=== PATIENT | female | born 1965 | race Caucasian/White ===

== ENCOUNTER → 2021-01-05 | Outpatient (CLI) | payer OTHER ==
[~2021-01-05] MED LIST: ATORVASTATIN CA40 MG PO; BUPROPION XL150 MG PO; CLARITIN 10MG T10 MG PO; CLINDAMYCIN HC300 MG PO; CLOPIDOGREL75 MG PO; D3-501250 MCG PO; DIABETA 2.5 MG2.5 MG PO; ECOTRIN81 MG PO; ELAVIL 25 MG TA25 MG PO; FLEXERIL 10 MG10 MG PO; GABAPENTIN800 MG PO; GLIMEPIRIDE1 MG PO; GLUCOPHAGE850 MG PO; HUMULIN 70100 UNIT/2 SC; HYDROCODON-ACE1 EAC4 PO; IBUPROFEN800 MG PO; IMDUR ER TAB 6060 MG PO; ISOSORBIDE MONO30 MG PO; LANTUS SOL100 UNIT/1 SQ; LEVOFLOXACIN500 MG PO; LISINOPRIL-HCT1 EAC2 PO; LISINOPRIL5 MG PO; LOPRESSOR 25 MG25 MG PO; LOPRESSOR50 MG PO; METFORMIN HCL1000 MG PO; NEURONTIN400 MG PO; NITROSTAT0.4 MG SL; PANTOPRAZOLE SO40 MG PO; PLAVIX 75 MG TA75 MG PO; PROTONIX 40 MG40 M1 PO; RANEXA500 MG PO; TIZANIDINE HCL4 MG PO; TORADOL 10 MG T10 MG PO; VITAMIN D3125 MCG PO; ZANAFLEX4 M1 PO
== END ==
LOC: HEART 5 07:26
DX: R00.2 Palpitations (principal)

== ENCOUNTER → 2021-02-21 | Outpatient (CLI) | payer OTHER ==
[2021-02-21 11:54] LABS: HEMOGLOBIN 13.7 gm/dl (12.3-15.3); RED BLOOD COUNT 4.65 M/UL (4.00-5.10); WHITE BLOOD COUNT 11.3 K/UL (4.5-11.0)
[2021-02-21 12:15] LABS: BUN/CREATININE RATIO 19 (0-10)
== END ==
LOC: LAB 10:57
PROVIDERS: Internal Medicine Cardiovascular Disease
DX: R55 Syncope and collapse (principal); I47.2 Ventricular tachycardia; R00.1 Bradycardia, unspecified
CPT/HCPCS: 36415; 71046; 80048; 84439; 84443; 84481; 85025

== ENCOUNTER 2021-02-23 12:01 | Outpatient (CLI) | payer OTHER ==
[~2021-02-23] VITALS: Ht 165.1 cm; Wt 75.8 kg
[~2021-02-23 12:01] MED LIST changes: -BUPROPION XL150 MG PO; -CLARITIN 10MG T10 MG PO; -CLINDAMYCIN HC300 MG PO; -CLOPIDOGREL75 MG PO; -D3-501250 MCG PO; -GABAPENTIN800 MG PO; -HUMULIN 70100 UNIT/2 SC; -HYDROCODON-ACE1 EAC4 PO; -ISOSORBIDE MONO30 MG PO; -LANTUS SOL100 UNIT/1 SQ; -LEVOFLOXACIN500 MG PO; -LISINOPRIL5 MG PO; -LOPRESSOR 25 MG25 MG PO; -METFORMIN HCL1000 MG PO; -PLAVIX 75 MG TA75 MG PO; -PROTONIX 40 MG40 M1 PO; -TIZANIDINE HCL4 MG PO
[2021-02-23] MEDS ORDERED: BUPROPION XL150 MG PO (13:09)
[2021-02-23] MEDS ORDERED: CLOPIDOGREL75 MG PO (13:09)
[2021-02-23] MEDS ORDERED: GABAPENTIN800 MG PO (13:10)
[2021-02-23] MEDS ORDERED: LANTUS SOL100 UNIT/1 SQ (13:11)
[2021-02-23] MEDS ORDERED: HUMULIN 70100 UNIT/2 SC (13:11)
[2021-02-23] MEDS ORDERED: LISINOPRIL5 MG PO (13:11)
[2021-02-23] MEDS ORDERED: METFORMIN HCL1000 MG PO (13:12)
[2021-02-23] MEDS ORDERED: PROTONIX 40 MG40 M1 PO (13:13)
[2021-02-23] MEDS ORDERED: TIZANIDINE HCL4 MG PO (13:13)
[2021-02-23] MEDS ORDERED: D3-501250 MCG PO (13:14)
[2021-02-23] MEDS ORDERED: CLARITIN 10MG T10 MG PO (13:16)
[2021-02-23] MEDS ORDERED: ISOSORBIDE MONO30 MG PO (13:16)
[2021-02-23] MEDS ORDERED: HYDROCODON-ACE1 EAC4 PO (16:14)
[2021-02-23] MEDS ORDERED: LEVOFLOXACIN500 MG PO (16:14)
[2021-02-23] MEDS ORDERED: CLINDAMYCIN HC300 MG PO (16:14)
[2021-02-23] MEDS ORDERED: LOPRESSOR 25 MG25 MG PO (16:23)
[2021-02-23] MEDS ORDERED: PLAVIX 75 MG TA75 MG PO (16:52)
== END 2021-02-24 12:15 | disposition home or self-care (01) ==
LOC: CATH 12:01 → PROG CARE 17:02 → CATH 02-24 12:15
DX: I44.1 Atrioventricular block, second degree (principal); I47.2 Ventricular tachycardia; R42 Dizziness and giddiness; R55 Syncope and collapse; R00.1 Bradycardia, unspecified; I25.118 Atherosclerotic heart disease of native coronary artery with other forms of angina pectoris; I25.2 Old myocardial infarction; I10 Essential (primary) hypertension; E11.65 Type 2 diabetes mellitus with hyperglycemia; E11.42 Type 2 diabetes mellitus with diabetic polyneuropathy; K21.9 Gastro-esophageal reflux disease without esophagitis; F32.9 Major depressive disorder, single episode, unspecified; E78.5 Hyperlipidemia, unspecified; Z95.5 Presence of coronary angioplasty implant and graft; Z86.73 Personal history of transient ischemic attack (TIA), and cerebral infarction without residual deficits; Z86.16 Personal history of COVID-19; Z88.0 Allergy status to penicillin; Z79.82 Long term (current) use of aspirin; Z79.02 Long term (current) use of antithrombotics/antiplatelets; Z79.4 Long term (current) use of insulin; Z79.899 Other long term (current) drug therapy
CPT/HCPCS: 33249; 71045; 82962; 93620; 93641; 99152; 99153; C1721; C1730; C1766; C1777; C1898; J1644; J2250; J2270; J3010; J3370; J7030; J7040; J7050; J7070

== ENCOUNTER 2021-02-28 22:44 | Emergency (ER) | payer OTHER ==
[~2021-02-28 22:44] MED LIST changes: +BUPROPION XL150 MG PO; +CLARITIN 10MG T10 MG PO; +CLINDAMYCIN HC300 MG PO; +CLOPIDOGREL75 MG PO; +D3-501250 MCG PO; +GABAPENTIN800 MG PO; +HUMULIN 70100 UNIT/2 SC; +HYDROCODON-ACE1 EAC4 PO; +ISOSORBIDE MONO30 MG PO; +LANTUS SOL100 UNIT/1 SQ; +LEVOFLOXACIN500 MG PO; +LISINOPRIL5 MG PO; +LOPRESSOR 25 MG25 MG PO; +METFORMIN HCL1000 MG PO; +PLAVIX 75 MG TA75 MG PO; +PROTONIX 40 MG40 M1 PO; +TIZANIDINE HCL4 MG PO
[2021-03-01 00:46] LABS: HEMOGLOBIN 12.9 gm/dl (12.3-15.3); RED BLOOD COUNT 4.41 M/UL (4.00-5.10); WHITE BLOOD COUNT 10.9 K/UL (4.5-11.0)
[2021-03-01 01:06] LABS: BUN/CREATININE RATIO 23 (0-10)
== END 2021-03-01 01:41 | disposition home or self-care (01) ==
LOC: ER1 22:44
PROVIDERS: Family Medicine
DX: T17.208A Unspecified foreign body in pharynx causing other injury, initial encounter (principal); Z86.73 Personal history of transient ischemic attack (TIA), and cerebral infarction without residual deficits; Z95.0 Presence of cardiac pacemaker; Z95.1 Presence of aortocoronary bypass graft; Z90.49 Acquired absence of other specified parts of digestive tract
CPT/HCPCS: 71045; 80053; 82550; 82553; 83874; 84484; 85025; 93005; 99283

== ENCOUNTER 2021-06-30 13:28 | Emergency (ER) | payer OTHER | END 2021-06-30 16:58 | disposition home or self-care (01) | LOC: ER1 13:28 | DX: M54.42 Lumbago with sciatica, left side (principal); M25.552 Pain in left hip; E11.9 Type 2 diabetes mellitus without complications; I10 Essential (primary) hypertension; Z95.1 Presence of aortocoronary bypass graft; Z88.0 Allergy status to penicillin; Z86.73 Personal history of transient ischemic attack (TIA), and cerebral infarction without residual deficits | CPT/HCPCS: 73502; 96372; 99283; J1100; J1885 ==

== ENCOUNTER → 2021-09-05 | Outpatient (CLI) | payer OTHER | LOC: KOH-I 08-29 08:30 | DX: R51.9 Headache, unspecified (principal); R29.6 Repeated falls; R53.1 Weakness | CPT/HCPCS: 70450 ==

== ENCOUNTER → 2021-09-13 | Outpatient (CLI) | payer OTHER | LOC: HEART 5 08:45 | DX: I20.9 Angina pectoris, unspecified (principal) | CPT/HCPCS: 78452; A9502; J2785 ==

== ENCOUNTER 2021-11-03 19:54 | Observation (INO) | payer OTHER ==
[~2021-11-03] VITALS: Ht 165.1 cm; Wt 72.1 kg
[~2021-11-03 19:54] MED LIST changes: -ELAVIL 25 MG TA25 MG PO; +ELAVIL 50 MG TA50 MG PO
[2021-11-03 20:27] LABS: HEMOGLOBIN 14.3 gm/dl (12.3-15.3); RED BLOOD COUNT 5.07 M/UL (4.00-5.10); WHITE BLOOD COUNT 10.9 K/UL (4.5-11.0)
[2021-11-03 20:51] LABS: BUN/CREATININE RATIO 19 (0-10)
[2021-11-04] MEDS ORDERED: PROMETHAZINE-D473 M1 PO (00:10)
[2021-11-04] MEDS ORDERED: KLONOPIN TAB 00.5 MG PO (00:11)
[2021-11-04] MEDS ORDERED: CELEXA 20MG TAB20 MG PO (00:11)
[2021-11-04 06:16] LABS: HEMOGLOBIN 14.1 gm/dl (12.3-15.3); RED BLOOD COUNT 5.04 M/UL (4.00-5.10); WHITE BLOOD COUNT 11.7 K/UL (4.5-11.0)
[2021-11-04 06:36] LABS: BUN/CREATININE RATIO 22 (0-10)
--- NOTE | 2021-11-04 06:36 | NUR ---
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 DAYSHIFT RN MADE AWARE.
[2021-11-04 20:31] LABS: HEMOGLOBIN 14.3 gm/dl (12.3-15.3); RED BLOOD COUNT 5.22 M/UL (4.00-5.10); WHITE BLOOD COUNT 10.5 K/UL (4.5-11.0)
[2021-11-04 20:50] LABS: BUN/CREATININE RATIO 18 (0-10)
[2021-11-05 03:08] LABS: HEMOGLOBIN 14.2 gm/dl (12.3-15.3); RED BLOOD COUNT 5.04 M/UL (4.00-5.10); WHITE BLOOD COUNT 13.1 K/UL (4.5-11.0)
[2021-11-05 03:24] LABS: BUN/CREATININE RATIO 15 (0-10)
[2021-11-05] MEDS ORDERED: BRILINTA 90 MG90 MG PO (09:06)
[2021-11-05] MEDS ORDERED: NITROSTAT0.4 MG SL (10:16)
== END 2021-11-05 09:05 | disposition home or self-care (01) ==
LOC: ER1 19:54 → M/S 21:30 → CDU 21:30 → M/S 21:30 → PROG CARE 11-04 13:46
PROVIDERS: Internal Medicine Interventional Cardiology; Nurse Practitioner; ADMIT Internal Medicine
DX: I25.110 Atherosclerotic heart disease of native coronary artery with unstable angina pectoris (principal); I10 Essential (primary) hypertension; I48.0 Paroxysmal atrial fibrillation; E11.9 Type 2 diabetes mellitus without complications; I69.351 Hemiplegia and hemiparesis following cerebral infarction affecting right dominant side; Z95.1 Presence of aortocoronary bypass graft; E78.5 Hyperlipidemia, unspecified; G89.29 Other chronic pain; M54.50 Low back pain, unspecified; Z90.49 Acquired absence of other specified parts of digestive tract; Z98.51 Tubal ligation status; Z88.0 Allergy status to penicillin; Z82.49 Family history of ischemic heart disease and other diseases of the circulatory system; Z79.82 Long term (current) use of aspirin; Z79.4 Long term (current) use of insulin; Z79.01 Long term (current) use of anticoagulants; Z79.899 Other long term (current) drug therapy
CPT/HCPCS: ECHO; 36415; 71045; 80048; 80053; 82550; 82553; 82962; 83735; 83874; 84484; 85025; 85027; 85347; 85610; 85730; 93005; 93306; 93571; 96374; 96375; 96376; 97161; 99152; 99153; 99285; C1769; C1874; C1887; C9600; G0378; J0153; J1170; J1644; J2250; J3010; J3246; J7040; Q9967

== ENCOUNTER → 2022-01-13 | Outpatient (CLI) | payer OTHER ==
[~2022-01-13] MED LIST changes: +BRILINTA 90 MG90 MG PO; +CELEXA 20MG TAB20 MG PO; +KLONOPIN TAB 00.5 MG PO; +PROMETHAZINE-D473 M1 PO
== END ==
LOC: RAD 11:09
DX: M25.561 Pain in right knee (principal); M25.562 Pain in left knee
CPT/HCPCS: 73562

== ENCOUNTER → 2022-03-16 | Outpatient (CLI) | payer OTHER | LOC: RAD 12:43 | DX: M25.551 Pain in right hip (principal); M47.816 Spondylosis without myelopathy or radiculopathy, lumbar region; N20.0 Calculus of kidney | CPT/HCPCS: 72100; 73502 ==

== ENCOUNTER 2022-05-11 15:20 | Emergency (ER) | payer OTHER ==
[2022-05-11 15:36] LABS: HEMOGLOBIN 13.8 gm/dl (12.3-15.3); RED BLOOD COUNT 4.78 M/UL (4.00-5.10); WHITE BLOOD COUNT 15.5 K/UL (4.5-11.0)
[2022-05-11] MEDS ORDERED: ONDANSETRON ODT4 MG SL (21:08)
== END 2022-05-11 21:59 | disposition home or self-care (01) ==
LOC: ER1 15:20
PROVIDERS: Physician Assistant
DX: R55 Syncope and collapse (principal); S09.90XA Unspecified injury of head, initial encounter; S16.1XXA Strain of muscle, fascia and tendon at neck level, initial encounter; J06.9 Acute upper respiratory infection, unspecified; J04.0 Acute laryngitis; I95.9 Hypotension, unspecified; E11.9 Type 2 diabetes mellitus without complications; I11.9 Hypertensive heart disease without heart failure; I25.10 Atherosclerotic heart disease of native coronary artery without angina pectoris; Z20.822 Contact with and (suspected) exposure to COVID-19; Z88.0 Allergy status to penicillin; Z79.82 Long term (current) use of aspirin; Z79.02 Long term (current) use of antithrombotics/antiplatelets; Z87.442 Personal history of urinary calculi; Z95.5 Presence of coronary angioplasty implant and graft
CPT/HCPCS: 0240U; 51701; 70450; 71045; 72125; 80053; 81001; 82550; 82553; 83605; 84484; 84703; 85025; 87040; 87086; 93005; 96361; 96374; 99285; J2405

== ENCOUNTER → 2022-06-30 | Outpatient (CLI) | payer OTHER ==
[~2022-06-30] MED LIST changes: +ONDANSETRON ODT4 MG SL
== END ==
LOC: CT 12:16
DX: R31.29 Other microscopic hematuria (principal); M54.50 Low back pain, unspecified; R10.9 Unspecified abdominal pain; R39.11 Hesitancy of micturition; N20.0 Calculus of kidney
CPT/HCPCS: 36415; 82565; 84520; Q9967